=== PATIENT | male | born 1960 | race Asian ===

== ENCOUNTER 2020-07-11 06:10 | Inpatient (IN) | payer OTHER ==
[~2020-07-11] VITALS: Ht 170.2 cm; Wt 68.0 kg
[2020-07-11] MEDS ORDERED: AZITHROMYCIN 500 MG in IV D5W 250 ML IV ONE (06:30)
[2020-07-11] MEDS ORDERED: CEFTRIAXONE 1GM BAG (ER ONLY) 1 GM/50 ML PIGGYBACK IV ONE (06:30)
[2020-07-11] MEDS ORDERED: IV NS 0.9% 500 ML BAG IV ONE (06:30)
[2020-07-11] MEDS ORDERED: CEFTRIAXONE 1GM BAG (ER ONLY) 50 ML IV ONE (06:34)
[2020-07-11] MEDS ORDERED: AZITHROMYCIN 500 MG VIAL ONE (06:34)
--- NOTE | 2020-07-11 06:47 | NUR ---
dwain 102 from home c/o sob and cough x 3 days. field 02 sat room air 56%. pt currently on nonrebreather 15 sating 97%, iv started, blood drawn and sent to lab
--- NOTE | 2020-07-11 06:56 | NUR ---
covid swab collected and sent to lab
[2020-07-11 07:03] LABS: BASOPHILS # (AUTO) 0.1 /CMM (0.0-0.2); BASOPHILS % (AUTO) 0.5 % (0.0-2.0); EOSINOPHILS % (AUTO) 0.6 % (0.0-6.0); HEMATOCRIT 45 % (39-51); HEMOGLOBIN 14.9 g/dL (13.5-17.5); LYMPHOCYTES # (AUTO) 0.5 /CMM (0.8-4.8); LYMPHOCYTES % (AUTO) 5.5 % (20.0-44.0); MEAN CORPUSCULAR HGB CONC 33 g/dl (31.0-36.0); MEAN CORPUSCULAR VOLUME 103 fL (80-96); MONOCYTES # (AUTO) 0.3 /CMM (0.1-1.30); MONOCYTES % (AUTO) 2.7 % (2.0-12.0); NEUTROPHILS # (AUTO) 9.1 /CMM (1.8-8.9); NEUTROPHILS % (AUTO) 90.7 % (43.0-81.0); PLATELET COUNT (AUTO) 139 /CMM (150-450); RED BLOOD CELL COUNT(AUTO) 4.38 MIL/uL (4.5-6.0)
--- NOTE | 2020-07-11 07:20 | NUR ---
ASSESSED PT ON BED AWAKE AND ALERT ON O2 AT 15LPM VIA NB. V/S STABLE, KEPT RESTED AND COMFORTABLE. WILL CONTINUE TO MONITOR.
--- NOTE | 2020-07-11 07:25 | NUR ---
ASSESSED PT ON BED AWAKE AND ALERT, ON NON REBREATHER MASK AT 15LPM SAT AT 91%, V/S STABLE. KEPT RESTED AND COMFORTABLE. WILL CONTINUE TO MONITOR.
[2020-07-11] MEDS ORDERED: POTA10TA11 PO (07:54)
[2020-07-11] MEDS ORDERED: ATOR10TA PO (07:54)
[2020-07-11] MEDS ORDERED: ATEN25TA PO (07:54)
[2020-07-11] MEDS ORDERED: FURO40TA5 PO (07:54)
[2020-07-11] MEDS ORDERED: RIVA10TA PO (07:54)
[2020-07-11] MEDS ORDERED: IPRATROPIUM NEB FS 0.5 MG/2.5 ML AMPUL.NEB NEB ONE (08:00)
[2020-07-11] MEDS ORDERED: ALBUTEROL FS 2.5 MG/0.5 ML VIAL.NEB NEB ONE (08:00)
--- NOTE | 2020-07-11 08:07 | NUR ---
LAB CALLED COVID-19 NEGATIVE. (-)
[2020-07-11 08:08] LABS: ALANINE AMINOTRANSFERASE 51 U/L (12-78); ALBUMIN 2.4 g/dL (3.4-5.0); ALKALINE PHOSPHATASE 76 U/L (46-116); ASPARTATE AMINOTRANSFERASE 54 U/L (15-37); B-TYPE NATRIURETIC PEPTIDE 571 PG/ML (0-125); BILIRUBIN,DIRECT 0.8 mg/dL (0.0-0.2); BILIRUBIN,TOTAL 1.9 mg/dL (0.2-1.0); CALCIUM, SERUM 8.8 mg/dL (8.5-10.1); CARBON DIOXIDE 28 mmol/L (21-32); CHLORIDE 103 mmol/L (98-107); CREATININE 1.5 mg/dL (0.6-1.3); GLUCOSE 134 mg/dL (74-106); POTASSIUM 3.8 mmol/L (3.5-5.1); SODIUM SERUM 143 mmol/L (136-145); UREA NITROGEN, BLOOD 36 mg/dL (7-18)
[2020-07-11] MEDS ORDERED: ONDANSETRON HCL/PF 4 MG/2 ML VIAL IVP PRN (10:30)
[2020-07-11] MEDS ORDERED: TEMAZEPAM 15 MG CAPSULE PO PRN (10:30)
[2020-07-11] MEDS ORDERED: ONDANSETRON 4 MG TAB.RAPDIS SL PRN (10:30)
[2020-07-11] MEDS ORDERED: ACETAMINOPHEN 325 MG TABLET PO PRN (10:30)
[2020-07-11] MEDS ORDERED: ALBUTEROL SULFATE 8 GM HFA.AER.AD IH PRN (10:30)
[2020-07-11] MEDS ORDERED: HYDROCODONE/APAP 5/325MG TABLET PO PRN (10:30)
[2020-07-11] MEDS ORDERED: APIXABAN 5 MG TABLET ONE (10:37)
[2020-07-11] MEDS: APIXABAN 5 MG TABLET PO SCH ×2 (10:39→21:14)
[2020-07-11] MEDS ORDERED: DEXAMETHASONE SOD PHOSPHATE 10 MG/ML VIAL IV ONE (11:00)
[2020-07-11] MEDS ORDERED: FUROSEMIDE 40 MG/4 ML VIAL ONE (11:07)
[2020-07-11] MEDS ORDERED: DEXAMETHASONE SOD PHOSPHATE 10 MG/ML VIAL ONE (11:07)
[2020-07-11] MEDS: FUROSEMIDE 40 MG/4 ML VIAL IV SCH (11:13)
[2020-07-11] MEDS: ATENOLOL 25 MG TABLET PO SCH (11:30)
--- NOTE | 2020-07-11 11:31 | NUR ---
ATENOLOL NOT GIVEN PT BP IS 103/55.
--- NOTE | 2020-07-11 11:55 | NUR ---
RT AT [facility] FOR HIGH FLOW NC
--- NOTE | 2020-07-11 12:01 | NUR ---
RT NOTE PATIENT PLACED ON HIGH FLOW NASAL CANNULA 60LPM 100% WITH 15LPM NONREBREATHER PER MD ORDERS. EMERGENCY EQUIPMENT AT PATIENT BEDSIDE. WILL CONTINUE TO MONITOR PATIENT. Addendum: 07/11/20 at 1204 by PILO GRAY RT Amended: Links added.
[2020-07-11] MEDS ORDERED: LEVO112T5 PO (14:30)
[2020-07-11] MEDS ORDERED: LEVOTHYROXINE SODIUM 100 MCG TABLET ONE (14:57)
[2020-07-11] MEDS ORDERED: POTASSIUM CHLORIDE 10 MEQ TABLET.SA ONE (15:01)
[2020-07-11] MEDS: LEVOTHYROXINE SODIUM 112 MCG TABLET PO SCH (15:04)
[2020-07-11] MEDS: POTASSIUM CHLORIDE 10 MEQ TABLET.SA PO SCH (17:03)
[2020-07-11] MEDS ORDERED: ATORVASTATIN 10 MG TABLET ONE (18:08)
[2020-07-11] MEDS: ATORVASTATIN 10 MG TABLET PO SCH (18:10)
--- NOTE | 2020-07-11 19:05 | NUR ---
PT IN BED SLEEPING. EASILY ARROUSABLE.
--- NOTE | 2020-07-11 19:33 | NUR ---
REPORT GIVEN TO ASTER TRINIDAD FOR WILLIE
--- NOTE | 2020-07-11 19:57 | NUR ---
PT WAS TRANSFERRED TO 111 UNDER ACLS.
--- NOTE | 2020-07-11 19:59 | NUR ---
pt transported to unit on gurney with emt and rn at bedside w/ acls protocol. NAD noted during transport.
[2020-07-11 20:00] VITALS: BP 117/68
--- NOTE | 2020-07-11 20:00 | NUR ---
FLIGHT OPERATIONS SPECIALISTTRAY DRIER OPERATOR NOTE RECEIVED PATIENT IN BEED. A/OX3.ON OXYGEN 60L/MIN VIA HIGH FLOW NASAL CANNULA. RESPIRATIONS ARE EVEN AND SLIGHTLY LABORED DT PATIENT ASSISTED WITH TRANSFER FROM [facility] TO BED. NO RESP DISTRESS NOTED. NO C/O PAIN AT THIS TIME. EXTERNAL TELE MONITOR READS UNCONTROLLED AFIB HR 102. IN NO APPARENT DISTRESS.IV ACCESS IN RIGHT HAND #18 PATENT AND SALINE LOCKED. IV IN EFT HAND #18 IS INFILTRATED, AND REMOVED. INATAL PHYSICAL ASSESSMENT COMPLETED AT THIS TIME. SKIN ASSESSMENT COMPETED, SKIN INTACT. TOOTH CLERK OBTAINED VITALS AND COMPLETED BELONGING LIST. BED IS LOW AND LOCKED, HOB ELEVATED IN HIGH FOWLERS, SIDE RIALS UP X2, CALL LIGHT WITHIN REACH, EXPLAINED USE. WILL CONTINUE TO MONITOR THROUGHOUT SHIFT.
[2020-07-11] MEDS: DOXYCYCLINE HYCLATE (100 MG) 100 MG TABLET PO SCH (21:13)
[2020-07-11] MEDS: CEFEPIME 1 GM in IV D5W 50 ML IV SCH (21:13)
[2020-07-12] VITALS: BP 99/61
[2020-07-12 00:48] LABS: BILIRUBIN,URINE SMALL (NEGATIVE); COLOR,URINE DARK YELLOW (YELLOW); LEUKOCYTE ESTERASE ,URINE NEGATIVE (NEGATIVE); NITRITE, URINE NEGATIVE (NEGATIVE); PROTEIN,URINE NEGATIVE (NEGATIVE); UGLUCOSE NEGATIVE (NEGATIVE); UROBILINOGEN,URINE >=8.0 EU/dL (0.2)
[2020-07-12 04:00] VITALS: BP 102/60
--- NOTE | 2020-07-12 06:11 | NUR ---
wireless telegrapher note informdd dr. andres that patient is on high flw o2 and connected to a continuos pulse ox, and the beeping from the machine is causing him a great deal of anxiety and he is requesting an anxiety medication. telephone ordr xanax .25mg po q12hr prn. order read back note and carried out.
[2020-07-12 06:16] LABS: BASOPHILS % (AUTO) 0.4 % (0.0-2.0); EOSINOPHILS % (AUTO) 1.3 % (0.0-6.0); HEMATOCRIT 40 % (39-51); HEMOGLOBIN 13.3 g/dL (13.5-17.5); LYMPHOCYTES # (AUTO) 0.4 /CMM (0.8-4.8); LYMPHOCYTES % (AUTO) 4.2 % (20.0-44.0); MEAN CORPUSCULAR HGB CONC 33 g/dl (31.0-36.0); MEAN CORPUSCULAR VOLUME 103 fL (80-96); MONOCYTES # (AUTO) 0.3 /CMM (0.1-1.30); MONOCYTES % (AUTO) 2.7 % (2.0-12.0); NEUTROPHILS # (AUTO) 8.8 /CMM (1.8-8.9); NEUTROPHILS % (AUTO) 91.4 % (43.0-81.0); PLATELET COUNT (AUTO) 124 /CMM (150-450); RED BLOOD CELL COUNT(AUTO) 3.88 MIL/uL (4.5-6.0); WHITE BLOOD COUNT (AUTO) 9.6 K/uL (4.3-11.0)
[2020-07-12] MEDS: ALPRAZOLAM 0.25 MG TABLET PO PRN (06:37)
[2020-07-12 06:45] LABS: ALBUMIN 1.9 g/dL (3.4-5.0); BILIRUBIN,TOTAL 1.3 mg/dL (0.2-1.0); CALCIUM, SERUM 7.9 mg/dL (8.5-10.1); CREATININE 1.4 mg/dL (0.6-1.3); POTASSIUM 4.4 mmol/L (3.5-5.1); TOTAL PROTEIN, SERUM 6.9 g/dL (6.4-8.2)
--- NOTE | 2020-07-12 07:30 | NUR ---
RN OPENING NOTE PATIENT IS IN BED WITH HOB AT SEMI FOWLERS POSITION. PATIENT IS AOX3 AND ANXIOUS. PATIENT IS RECEIVING HIGH FLOW AT 60L 100% AND NRB AT 15L. SKIN IS INTACT. RHAND #18 IS PATENT, INTACT, AND HAS NO SIGNS OF INFILTRATION. BED IS LOCKED IN THE LOWEST POSITION, CALL POTTS WITHIN REACH, 3 GUARD RAILS RAISED, AND ALL HOSPITAL SAFETY PRECAUTIONS ARE BEING FOLLOWED. WILL CONTINUE TO MONITOR.
--- NOTE | 2020-07-12 07:42 | NUR ---
RECREATIONAL SPORTS DIRECTOR CLOSING NOTE PATIENT RESTING IN BED. A/OX3. REMAINS ON OXYGEN 60L/MIN VIA HIGH FLOW NASAL CANNULA WELL NONREBREATHER AT 15L/MIN. RESPIRATIONS ARE LABORED D/T PATIENT REMOVING O2 TO DRINK WATER. NO C/O PAIN THROUGHOUT SHIFT. XANAX GIVEN D/T ANXIETY. TELE MONITOR AFIB. IV ACCESS MAINTAINED IN RIGHT HAND #18. BED IS LOW AND LOCKED, HOB ELEVATED IN HIGH FOWLERS, SIDE RIALS UP X2, CALL LIGHT WITHIN REACH. WILL ENDORSE TO NEXT SHIFT.
[2020-07-12 08:00] VITALS: BP 94/62
[2020-07-12] MEDS: PANTOPRAZOLE 40 MG TABLET.DR PO SCH (08:06)
[2020-07-12] MEDS: POTASSIUM CHLORIDE 10 MEQ TABLET.SA PO SCH ×2 (08:06→17:26)
[2020-07-12] MEDS: LEVOTHYROXINE SODIUM 112 MCG TABLET PO SCH (08:06)
[2020-07-12] MEDS: DOXYCYCLINE HYCLATE (100 MG) 100 MG TABLET PO SCH ×2 (08:06→21:16)
[2020-07-12] MEDS: DEXAMETHASONE SOD PHOSPHATE 4 MG/ML VIAL IV SCH (08:07)
[2020-07-12] MEDS: FUROSEMIDE 40 MG/4 ML VIAL IV SCH (08:07)
[2020-07-12] MEDS: CEFEPIME 1 GM in IV D5W 50 ML IV SCH ×2 (08:08→21:16)
[2020-07-12] MEDS: APIXABAN 5 MG TABLET PO SCH ×2 (08:19→17:28)
[2020-07-12] MEDS: ATENOLOL 25 MG TABLET PO SCH (08:46)
[2020-07-12 12:00] VITALS: BP 99/57
--- NOTE | 2020-07-12 15:45 | NUR ---
BUDGET CONSULTANT NOTE PATIENT RIPPED OUT RHAND IV ACCESS. BLEEDING HAS BEEN CONTROLLED. PROVIDER NOTIFIED AND RESTRAINTS HAVE BEEN ORDERED.
[2020-07-12 16:00] VITALS: BP 99/57
[2020-07-12] MEDS: ATORVASTATIN 10 MG TABLET PO SCH (17:26)
--- NOTE | 2020-07-12 19:51 | NUR ---
RN CLOSING NOTE PATIENT IS IN BED WITH HOB AT SEMI FOWLERS POSITION. PATIENT IS AOX2. CURRENTLY ON 60L AT 100% AND NRB AT 15L. SOFT RESTRAINTS APPLIED BILATERALLY. SKIN IS INTACT. RAC#20 IS PATENT, INTACT, AND HAS NO SIGNS OF INFILTRATION. BED IS LOCKED IN THE LOWEST POSITION, CALL POTTS WITHIN REACH, 3 GUARD RAILS RAISED, AND ALL HOSPITAL SAFETY PRECAUTIONS ARE BEING FOLLOWED. ENDORSED TO BIOMETRICS ANALYST RN.
[2020-07-12 20:00] VITALS: BP 126/65
--- NOTE | 2020-07-12 20:00 | NUR ---
RN NOTE RECEIVED PT IN BED AOX1-2. ON HFNC 60L 100%FIO2 AND WITH NRB AT 15L. SATING AT 92%. NO RESP DISTRESS NOTED. ON TELE MONITORING SHOWS CONTROLLED AFIB WITH HR OF 93. PT WITH BILATERAL SOFT WRIST RESTRAINTS, WITH GOOD CIRCULATION. IV ON LAC G20 PATENT AND INTACT. NO SIGNS OF INFECTION. ALL SAFETY MEASURES IMPLEMENTED PER PROTOCOL, CALL LIGHT WITHIN REACH, BED LOCKED IN LOWEST POSITION. SIDE RAILS UP. WILL CONTINUE TO MONITOR.
--- NOTE | 2020-07-12 21:08 | NUR ---
RN NOTE RECEIVED CALL FROM CHEMISTRY. PT BLOOD CULTURE PRELIMINARY IS GRAM + COCCI. MBA INTERN DR ESTEFANI SHULTZ NOTIFIED, NO NEW ORDER.
--- NOTE | 2020-07-12 23:30 | NUR ---
RN NOTE RT REMOVED PTS NON REBREATHER DUE TO SATURATION IS GOOD AT 98-99%. NO RESP DISTRESS NOTED. WILL CONTINUE TO MONITOR.
--- NOTE | 2020-07-12 23:55 | NUR ---
RN NOTE PT CONTINUE ON HFNC 60L 100 %. WITH O2 SAT OF 97 %. NO RESP DISTRESS NOTED. WILL CONTINUE TO MONITOR.
[2020-07-13] VITALS: BP 113/58
--- NOTE | 2020-07-13 03:26 | NUR ---
RN NOTE PT SLEEPING COMFORTABLY. NO DISTRESS NOTED. O2 SAT AT 98%.
[2020-07-13 04:00] VITALS: BP 97/50
--- NOTE | 2020-07-13 06:15 | NUR ---
RN NOTE PT NOTED WITH LOW O2 SAT AT 84-85 WHILE COUGHING. PT ALERT, NO DISTRESS NOTED. DR JARA NOTIFIED, REQUESTED FOR COUGH MED ORDER. AWAITING FOR REPLY.
--- NOTE | 2020-07-13 06:16 | NUR ---
RN NOTE NONREBREATHER 15L WAS PUT BACK. RT AT BEDSIDE. WILL CONTINUE TO MONITOR. KEPT HOB ELEVATED.
--- NOTE | 2020-07-13 06:45 | NUR ---
RN NOTE DR JARA ORDERED ROBITUSSIN DM 5ML Q4HH PRN FOR COUGH. ORDER NOTED AND CARRIED OUT. PTS O2SAT AT 90-92%. NO CHANGES IN LOC. CONTINUE ON HFNC 60L 100 % AND NRB 15L.
[2020-07-13] MEDS: GUAIFENESIN/D-METHORPHAN HB 5 ML UDC PO PRN ×2 (07:06→21:15)
[2020-07-13] MEDS: PANTOPRAZOLE 40 MG TABLET.DR PO SCH (07:06)
--- NOTE | 2020-07-13 07:30 | NUR ---
RN OPENING NOTE PATIENT IS IN BED WITH HOB AT SEMI FOWLERS POSITION. PATIENT IS AOX2 WITH HIGH FLOW 60L AT 100% AND NRB AT 15L. SKIN IS INTACT. LAC #20 IS PATENT, INTACT, AND HAS NO SIGNS OF INFILTRATION. BILATERAL WRIST RESTRAINTS ARE NOT APPLIED. BED IS LOCKED IN THE LOWEST POSITION, CALL POTTS WITHIN REACH, AND ALL HOSPITAL SAFETY PRECAUTIONS ARE BEING FOLLOWED. WILL CONTINUE TO MONITOR THROUGHOUT SHIFT.
[2020-07-13 08:00] VITALS: BP 104/49
[2020-07-13] MEDS: ATENOLOL 25 MG TABLET PO SCH (09:00)
[2020-07-13] MEDS: POTASSIUM CHLORIDE 10 MEQ TABLET.SA PO SCH ×2 (09:20→17:15)
[2020-07-13] MEDS: CEFEPIME 1 GM in IV D5W 50 ML IV SCH ×2 (09:20→20:04)
[2020-07-13] MEDS: DEXAMETHASONE SOD PHOSPHATE 4 MG/ML VIAL IV SCH (09:21)
[2020-07-13] MEDS: DOXYCYCLINE HYCLATE (100 MG) 100 MG TABLET PO SCH ×2 (09:21→20:04)
[2020-07-13] MEDS: LEVOTHYROXINE SODIUM 112 MCG TABLET PO SCH (09:22)
[2020-07-13] MEDS: FUROSEMIDE 40 MG/4 ML VIAL IV SCH (09:22)
[2020-07-13] MEDS: APIXABAN 5 MG TABLET PO SCH ×2 (09:24→17:16)
--- NOTE | 2020-07-13 09:25 | NUR ---
GOVERNMENT GUARD NOTE BP MEDICATION HELD DUE TO LOW BP. WILL CONTINUE TO MONITOR.
[2020-07-13 12:00] VITALS: BP 88/58
[2020-07-13 12:25] LABS: CHOLESTEROL 145 mg/dL (<200); HDL CHOLESTEROL 37 mg/dL (40-60); LDL 93 mg/dL (0-99); TRIGLYCERIDES 124 mg/dL (30-150)
[2020-07-13 13:05] LABS: BILIRUBIN,DIRECT 0.6 mg/dL (0.0-0.2)
--- NOTE | 2020-07-13 13:33 | NUR ---
BARGE PILOT NOTE SPOKE WITH PHARMACY IN REGARDS OF EXPEDITING PCR RESULTS FOR ADMINISTRATION OF CONVALESCENT PLASMA. PHARMACY SAID THE PCR RESULT WILL BE AVAILABLE EARLIEST THIS AFTERNOON OR TOMORROW.
[2020-07-13] MEDS: VANCOMYCIN 1 GM in IV D5W 250ml IV SCH (13:56)
[2020-07-13 16:00] VITALS: BP 89/47
--- NOTE | 2020-07-13 16:30 | NUR ---
SANDWICH ARTIST NOTE DVT STOCKINGS APPLIED. WILL CONTINUE TO MONITOR.
[2020-07-13] MEDS: ATORVASTATIN 10 MG TABLET PO SCH (17:15)
--- NOTE | 2020-07-13 18:44 | NUR ---
RN CLOSING NOTE PATIENT IS IN BED WITH HOB AT SEMI FOWLERS POSITION. PATIENT IS AOX2 WITH HIGH FLOW 60L AT 100% AND NRB AT 15L. SKIN IS INTACT. LAC #20 IS PATENT, INTACT, AND HAS NO SIGNS OF INFILTRATION. BILATERAL DVT STOCKINGS ARE APPLIED. BED IS LOCKED IN THE LOWEST POSITION, CALL POTTS WITHIN REACH, AND ALL HOSPITAL SAFETY PRECAUTIONS ARE BEING FOLLOWED. WILL ENDORSE TO RIBBON TIER RN.
--- NOTE | 2020-07-13 19:05 | NUR ---
WEB OPERATIONS LEAD NOTE PCR SWABBED COLLECTED. WILL SUBMIT TO LAB.
--- NOTE | 2020-07-13 19:10 | NUR ---
RECEIVED PATIENT IN BED WITH HOB AT SEMI FOWLERS POSITION. PATIENT IS AOX2 WITH HIGH FLOW 60L AT 100% AND NRB AT 15L.SPO2 92% SKIN IS INTACT. TELE MONITOR READS AFIB CONTROLLED LAC #20 IS PATENT, INTACT, AND HAS NO SIGNS OF INFILTRATION. BED IS LOCKED IN THE LOWEST POSITION, CALL POTTS WITHIN REACH, AND ALL HOSPITAL SAFETY PRECAUTIONS ARE BEING FOLLOWED. WILL CONTINUE TO MONITOR THROUGHOUT SHIFT.
[2020-07-13 20:00] VITALS: BP 93/54
--- NOTE | 2020-07-13 20:00 | NUR ---
RN NOTE RECEIVED PT IN BED A/O X3 ON HIGH FLOW 60 L O2, FIO2 100% SATING 90% TO 91%.SAFETY MEASURES IN PLACE.
[2020-07-13] MEDS: ALPRAZOLAM 0.25 MG TABLET PO PRN (21:14)
[2020-07-14] VITALS (8 sets, daily range): BP systolic 91–140; BP diastolic 51–94
[2020-07-14] MEDS: VANCOMYCIN 1 GM in IV D5W 250ml IV SCH ×2 (01:28→14:11)
[2020-07-14] MEDS: GUAIFENESIN/D-METHORPHAN HB 5 ML UDC PO PRN ×2 (03:05→10:23)
[2020-07-14 06:03] LABS: BASOPHILS % (AUTO) 0.2 % (0.0-2.0); HEMATOCRIT 40 % (39-51); HEMOGLOBIN 13.1 g/dL (13.5-17.5); LYMPHOCYTES # (AUTO) 0.4 /CMM (0.8-4.8); MEAN CORPUSCULAR HGB CONC 33 g/dl (31.0-36.0); MEAN CORPUSCULAR VOLUME 102 fL (80-96); MONOCYTES # (AUTO) 0.4 /CMM (0.1-1.30); MONOCYTES % (AUTO) 2.6 % (2.0-12.0); NEUTROPHILS # (AUTO) 13.1 /CMM (1.8-8.9); NEUTROPHILS % (AUTO) 93.2 % (43.0-81.0); PLATELET COUNT (AUTO) 123 /CMM (150-450); RED BLOOD CELL COUNT(AUTO) 3.91 MIL/uL (4.5-6.0)
--- NOTE | 2020-07-14 06:46 | NUR ---
PT ON BED ASLEEP EASY TO WAKE UP NO SIGN OF RESPIRATORY DISTRESS, STILL ON HIGH LOW 60L FIO2 100% SPO2 92% NO COMPLAINED OF PAIN, TELE MONITOR READS AFIB 80S NO SIGNIFICANT CHANGES ON CONDITION NOTED ALL NEED ATTENDED BED ON LOWEST POSITION AND LOCKED SIDE RAILS UP X 2 CALL LIGHT WITHIN REACH WILL ENDORSED TO AM SHIFT NURSE
[2020-07-14 06:58] LABS: CALCIUM, SERUM 8.1 mg/dL (8.5-10.1); CREATININE 1.2 mg/dL (0.6-1.3); MAGNESIUM 2.2 mg/dL (1.8-2.4); PHOSPHORUS 2.4 mg/dL (2.5-4.9); POTASSIUM 4.2 mmol/L (3.5-5.1)
--- NOTE | 2020-07-14 07:10 | NUR ---
RN OPENING NOTE PATIENT RECEIVED IN BED RESTING IN SEMI FOWLERS POSITION. PATIENT IS AOX2 ON O2 THERAPY VIA HFNC AT 60 LPM, 100% PLUS NRB AT 15 LPM. SKIN IS INTACT. LAC #20 IS PATENT, INTACT, AND HAS NO SIGNS OF INFILTRATION. BILATERAL DVT STOCKINGS ARE APPLIED. SAFETY PRECAUTIONS IMPLEMENTED, BED IS LOCKED IN LOWEST POSITION, SIDE RAILS UP X2, BED ALARM ON, AND CALL LIGHT WITHIN REACH. WILL CONTINUE TO MONITOR CLIENT AND PROVIDE CARE THROUGHOUT SHIFT.
[2020-07-14] MEDS: PANTOPRAZOLE 40 MG TABLET.DR PO SCH (08:50)
[2020-07-14] MEDS: LEVOTHYROXINE SODIUM 112 MCG TABLET PO SCH (08:53)
[2020-07-14] MEDS: DOXYCYCLINE HYCLATE (100 MG) 100 MG TABLET PO SCH ×2 (08:53→20:39)
[2020-07-14] MEDS: POTASSIUM CHLORIDE 10 MEQ TABLET.SA PO SCH ×2 (08:53→16:10)
[2020-07-14] MEDS: DEXAMETHASONE SOD PHOSPHATE 4 MG/ML VIAL IV SCH (08:53)
[2020-07-14] MEDS: ATENOLOL 25 MG TABLET PO SCH (08:54)
[2020-07-14] MEDS: CEFEPIME 1 GM in IV D5W 50 ML IV SCH ×2 (08:55→20:40)
[2020-07-14] MEDS: FUROSEMIDE 40 MG/4 ML VIAL IV SCH (08:55)
[2020-07-14] MEDS: APIXABAN 5 MG TABLET PO SCH ×2 (09:20→16:11)
[2020-07-14 15:03] LABS: ABG BASE EXCESS 2.2 mmol/L; ABG PCO2 33.5 mmHg (35.0-45.0); ABG PH 7.491 (7.350-7.450); AaDO2 628.5 mmHg; COHb 0.7 % (0.5-1.5); MetHb 0.1 % (0.0-1.5); O2Hb 86.3 % (94.0-97.0); SITE, ABG Right Radial; VENT MODE, BG HFNC 50L 100% NRB
[2020-07-14] MEDS: ALPRAZOLAM 0.25 MG TABLET PO PRN (15:28)
[2020-07-14] MEDS ORDERED: NEUTRA PHOS 1 POWD.PACKET PO ONE (16:00)
[2020-07-14] MEDS: ATORVASTATIN 10 MG TABLET PO SCH (18:02)
--- NOTE | 2020-07-14 18:53 | NUR ---
RN CLOSING NOTE PATIENT IN BED RESTING IN SEMI FOWLERS POSITION. PATIENT IS AOX2 ON O2 THERAPY VIA HFNC AT 60 LPM, 100% PLUS NRB AT 15 LPM. SKIN IS INTACT. LAC #20 IS PATENT, INTACT, AND HAS NO SIGNS OF INFILTRATION. SAFETY PRECAUTIONS IMPLEMENTED, BED IS LOCKED IN LOWEST POSITION, SIDE RAILS UP X2, BED ALARM ON, AND CALL LIGHT WITHIN REACH. WILL ENDORSE CONTINUATION OF CARE TO UPCOMING SHIFT.
--- NOTE | 2020-07-14 21:35 | NUR ---
2134 DR JARA WAS NOTIFIED OF ABG RESULT WITH NO ORDER MADE. SHE SAID TO CONTINUE TO MONITOR PATIENT FOR NOW.
--- NOTE | 2020-07-14 22:05 | NUR ---
8007 DR. JARA WAS NOTIFIED THAT PATIENT IS TACYPNEIC RR IN THE HIGH 20S, O2 SATURATION 90-91% ON HI FLOW OXYGEN WITH NRM. SHE ORDERED TO TRANSFER PATIENT TO ICU WITH SAME ORDERS. ORDER NOTED AND CARRIED OUT.
--- NOTE | 2020-07-14 22:40 | NUR ---
2240 TRANSFERRED TO ICU ON ACLS PROTOCOL, ACCOMPANIED BY RT AND NURSES. AWAKE AND VERBALLY RESPONSIVE. NO DISTRESS NOTED BUT TACHYPNEIC AND EASILY DESATURATES. PLACED IN ROOM 260.
--- NOTE | 2020-07-14 22:45 | NUR ---
RECEIVED PATIENT FROM ARUN. BEDSIDE REPORT GIVEN. PATIENT TRANSFERED DUE TO RESPIRATORY DISTRESS. PATIENT IS ON HIGH FLOW 6L WITH FI02 AT 100% AND NRB MASK AT 15L SATURATING AT 87%. PATIENT SHOWS TACHYPNIC WITH RR AT 35. HE IS A/OX4 UNDERSTANDS KAZAKH AND FOLLOWS COMMANDS. RADIAL PULSES PALPATED REGUALR AND STRONG. PUPILS REACTIVE TO LIGHT. SPEECH CLEAR. EXTREMITIES STRONG. 2300: OF NOW PATIENT IS COMFORTABLE WITH NO SIGN OF RESPIRATORY DISTRESS SATURATING AT 93%.
[2020-07-15] VITALS (31 sets, daily range): BP systolic 86–118; BP diastolic 48–72
[2020-07-15] MEDS: VANCOMYCIN 1 GM in IV D5W 250ml IV SCH ×2 (03:14→14:21)
[2020-07-15 05:07] LABS: BASOPHILS % (AUTO) 0.3 % (0.0-2.0); EOSINOPHILS % (AUTO) 1.3 % (0.0-6.0); HEMATOCRIT 43 % (39-51); HEMOGLOBIN 14.1 g/dL (13.5-17.5); LYMPHOCYTES # (AUTO) 0.3 /CMM (0.8-4.8); LYMPHOCYTES % (AUTO) 2.4 % (20.0-44.0); MEAN CORPUSCULAR HGB CONC 33 g/dl (31.0-36.0); MEAN CORPUSCULAR VOLUME 102 fL (80-96); MONOCYTES # (AUTO) 0.3 /CMM (0.1-1.30); MONOCYTES % (AUTO) 2.3 % (2.0-12.0); NEUTROPHILS # (AUTO) 13.1 /CMM (1.8-8.9); NEUTROPHILS % (AUTO) 93.7 % (43.0-81.0); PLATELET COUNT (AUTO) 148 /CMM (150-450); RED BLOOD CELL COUNT(AUTO) 4.17 MIL/uL (4.5-6.0)
[2020-07-15 05:22] LABS: CALCIUM, SERUM 8.2 mg/dL (8.5-10.1); CREATININE 1.4 mg/dL (0.6-1.3); POTASSIUM 4.2 mmol/L (3.5-5.1)
[2020-07-15] MEDS: DEXAMETHASONE SOD PHOSPHATE 4 MG/ML VIAL IV SCH (08:13)
[2020-07-15] MEDS: LEVOTHYROXINE SODIUM 112 MCG TABLET PO SCH (08:14)
[2020-07-15] MEDS: DOXYCYCLINE HYCLATE (100 MG) 100 MG TABLET PO SCH (08:14)
[2020-07-15] MEDS: POTASSIUM CHLORIDE 10 MEQ TABLET.SA PO SCH ×2 (08:14→17:24)
[2020-07-15] MEDS: FUROSEMIDE 40 MG/4 ML VIAL IV SCH (08:15)
[2020-07-15] MEDS: PANTOPRAZOLE 40 MG TABLET.DR PO SCH (08:15)
[2020-07-15] MEDS: ATENOLOL 25 MG TABLET PO SCH ×2 (08:16→09:00)
[2020-07-15] MEDS: APIXABAN 5 MG TABLET PO SCH ×2 (08:18→17:24)
[2020-07-15] MEDS: CEFEPIME 1 GM in IV D5W 50 ML IV SCH ×2 (08:24→22:30)
--- NOTE | 2020-07-15 09:00 | NUR ---
PT SCHEDULED 0900 MED OF ATENOLOL NON-ADMIN. PT SBP IN 90'S, LASIX ALSO GIVEN
[2020-07-15] MEDS ORDERED: REMDESIVIR (CHARGED) 200 MG, *LOADING DOSE 1 EA in IV NS 0.9% 210 ML IV ONE (16:00)
[2020-07-15] MEDS: ENSURE ENLIVE 237 ML LIQUID (VANILLA) PO SCH (17:24)
[2020-07-15] MEDS: ATORVASTATIN 10 MG TABLET PO SCH (17:24)
--- NOTE | 2020-07-15 19:00 | NUR ---
PT REMAINS IN BED NO ACUTE CHANGES ON HF AND NON-REBREATHER MASK, O2 SATS 89-95% THIS SHIFT NO RESPIRATORY DISTRESS. PT TESTED POSITIVE PCR COVID. REMDESEVIR INITIATED, WILL OBTAIN CONSENT FOR CONVALESCENT PLASMA.
--- NOTE | 2020-07-15 21:30 | NUR ---
PATIENT WAS NOTICED TO BE DE SATURATING AT 89%. PATIENT WAS REPOSITIONED TO ATTEMPT TO PRONE BUT PATIENT DE SATURATED MORE. 2230: PATIENT CURRENTLY AT 84% WITH NO SIGN OF RESPIRATORY DISTRESS. WILL CONTINUE TO MONITOR.
[2020-07-16] VITALS (73 sets, daily range): BP systolic 58–147; BP diastolic 35–109
[2020-07-16] MEDS: VANCOMYCIN 1 GM in IV D5W 250ml IV SCH ×2 (01:10→14:13)
--- NOTE | 2020-07-16 01:29 | NUR ---
CONVALESCENT PLASMA COMPLETED AT 0111
[2020-07-16 05:14] LABS: BASOPHILS % (AUTO) 0.2 % (0.0-2.0); EOSINOPHILS % (AUTO) 0.7 % (0.0-6.0); HEMATOCRIT 41 % (39-51); HEMOGLOBIN 13.5 g/dL (13.5-17.5); LYMPHOCYTES # (AUTO) 0.4 /CMM (0.8-4.8); LYMPHOCYTES % (AUTO) 3.2 % (20.0-44.0); MEAN CORPUSCULAR HGB CONC 33 g/dl (31.0-36.0); MEAN CORPUSCULAR VOLUME 104 fL (80-96); MONOCYTES # (AUTO) 0.3 /CMM (0.1-1.30); MONOCYTES % (AUTO) 2.6 % (2.0-12.0); NEUTROPHILS # (AUTO) 11.3 /CMM (1.8-8.9); NEUTROPHILS % (AUTO) 93.3 % (43.0-81.0); PLATELET COUNT (AUTO) 159 /CMM (150-450); RED BLOOD CELL COUNT(AUTO) 3.93 MIL/uL (4.5-6.0); WHITE BLOOD COUNT (AUTO) 12.1 K/uL (4.3-11.0)
[2020-07-16 05:33] LABS: BILIRUBIN,DIRECT 0.9 mg/dL (0.0-0.2); BILIRUBIN,TOTAL 1.8 mg/dL (0.2-1.0); CALCIUM, SERUM 8.5 mg/dL (8.5-10.1); CREATININE 1.2 mg/dL (0.6-1.3); POTASSIUM 4.1 mmol/L (3.5-5.1)
[2020-07-16 06:19] LABS: C-REACTIVE PROTEIN 59.3 mg/dL (0.0-0.9)
[2020-07-16] MEDS: PANTOPRAZOLE 40 MG TABLET.DR PO SCH (07:40)
[2020-07-16] MEDS: CEFEPIME 1 GM in IV D5W 50 ML IV SCH ×2 (08:00→21:46)
[2020-07-16] MEDS: ENSURE ENLIVE 237 ML LIQUID (VANILLA) PO SCH ×2 (08:00→17:00)
[2020-07-16] MEDS: ATENOLOL 25 MG TABLET PO SCH (08:01)
[2020-07-16] MEDS: LEVOTHYROXINE SODIUM 112 MCG TABLET PO SCH (08:01)
[2020-07-16] MEDS: DEXAMETHASONE SOD PHOSPHATE 4 MG/ML VIAL IV SCH (08:01)
[2020-07-16] MEDS: POTASSIUM CHLORIDE 10 MEQ TABLET.SA PO SCH ×2 (08:01→18:33)
[2020-07-16] MEDS: APIXABAN 5 MG TABLET PO SCH ×2 (08:03→18:37)
[2020-07-16] MEDS: ALPRAZOLAM 0.25 MG TABLET PO PRN (09:33)
--- NOTE | 2020-07-16 10:00 | NUR ---
PT STATES HE HAS CHEST PAIN, THEN DENIED CHEST PAIN AND STATED HE HAD HEADACH, THEN STATES THAT HE DOES NOT KNOW. PT APPEARS RESTLESS. PT OFFERED AND GIVEN XANAX FOR AGITATION.
--- NOTE | 2020-07-16 10:32 | NUR ---
PT ENSURE DRINK NON-ADMIN, NOT PROVIDED WITH BREAKFAST TRAY. NUTRITION NOTIFIED, BUT STILL DID NOT RECEIVE DRINK. WILL F/U FOR 1700 ENSURE DRINK
--- NOTE | 2020-07-16 14:35 | NUR ---
PT OBSERVED TAKING OFF HIS HF AND NON-REBREATHER MASK, PT STATED HE WANTED TO GO TO THE BATHROOM. PT PREVIOUSLY TOLD TO REMAIN BEDREST AND USE BEDPAN. PT O2 SATS IN 75% WITH MORE LABORED BREATHING. PT ASSESSED BY RT, MD OSMAN AWARE. PER MD OSMAN, IF O2 SAT DOES NOT RISE ABOVE 85% IN 10 MINUTES, ORDER A STAT ABG
[2020-07-16 14:56] LABS: ABG OXYGEN SATURATION 68.2 % (92.0-98.5); ABG PCO2 33.8 mmHg (35.0-45.0); ABG PH 7.471 (7.350-7.450); ABG PO2 34.5 mmHg (75.0-100.0); AaDO2 644.7 mmHg; COHb 0.7 % (0.5-1.5); MetHb 0.2 % (0.0-1.5); O2Hb 67.6 % (94.0-97.0); SITE, ABG Left Radial; VENT MODE, BG 60l hfnc 100% +nrb 15l
[2020-07-16] MEDS ORDERED: PROPOFOL 100 ML IV PRN (15:30)
--- NOTE | 2020-07-16 15:40 | NUR ---
RT INTUBATED PT WITH DR PERALTA ETT 7.5, 23 CM AT LIP SECURED AND PATENT WITH ORDERED VENT SETTING AC 24 400 +10 100% C02 COLOR CHANGED EQUAL BILATERAL CHEST RISE CHEST XRAY PENDING WILL CONT TO MONITOR Addendum: 07/16/20 at 1542 by NANO PAZ RT Amended: Links added.
--- NOTE | 2020-07-16 15:45 | NUR ---
ABG RESULTS RELAYED TO MD PELEG, PT INTUBATED AT BEDSIDE, PER MD PELEG, OK TO START PROPOFOL AT 50, AND MAX AT 100, IF PT STILL BREATHING OVER VENT, MAY INITIATE FENTANYL. NGT INSERTED ORDERED.
[2020-07-16] MEDS ORDERED: REMDESIVIR (CHARGED) 100 MG in IV NS 0.9% 100 ML IV SCH (16:00)
--- NOTE | 2020-07-16 16:00 | NUR ---
PICC LINE ORDERED FOR PT, UNABLE TO GET CONSENT FROM PATIENT OR PT FAMILY PER FACE SHEET ON CHART. EMERGENCY CONSENT PATIENT ON SEDATION AND NEEDS PRESSORS
[2020-07-16] MEDS ORDERED: ETOMIDATE 2 MG/ML VIAL IV ONE (16:07)
[2020-07-16] MEDS ORDERED: SUCCINYLCHOLINE CHLORIDE 20 MG/ML VIAL IV ONE (16:07)
[2020-07-16] MEDS ORDERED: FENTANYL CITRAT IV 2,500 MCG in IV NS 0.9% 250 ML IV PRN (16:30)
[2020-07-16] MEDS ORDERED: NOREPINEPHRINE 8 MG in IV NS 0.9% 242 ML IV PRN (16:30)
[2020-07-16] MEDS ORDERED: FENTANYL CITRATE IV 1,250 MCG in IV NS 0.9% 225 ML IV PRN (16:30)
--- NOTE | 2020-07-16 16:30 | NUR ---
PT ON MONITOR SHOWING ASYSTOLE AND NO PULSE, CODE BLUE INITIATED, 1 EPI GIVEN WITH CPR BEFORE ROSC. ANTHONY INITIATED FOR PATIENT.
[2020-07-16] MEDS: PHENYLEPHRINE 50 MG in IV NS 0.9% 245 ML IV PRN ×2 (17:00→21:44)
[2020-07-16 17:08] LABS: ABG BASE EXCESS -3.8 mmol/L; ABG OXYGEN SATURATION 88.7 % (92.0-98.5); ABG PCO2 48.1 mmHg (35.0-45.0); ABG PH 7.296 (7.350-7.450); ABG PO2 64.7 mmHg (75.0-100.0); AaDO2 600.2 mmHg; COHb 0.7 % (0.5-1.5); MetHb 0.2 % (0.0-1.5); O2Hb 87.9 % (94.0-97.0); SITE, ABG Right Radial; VENT MODE, BG ac24 400 +10 100%
[2020-07-16] MEDS: PROPOFOL 100 ML IV PRN ×3 (17:10→22:04)
[2020-07-16 17:12] LABS: BASOPHILS # (AUTO) 0.1 /CMM (0.0-0.2); BASOPHILS % (AUTO) 0.6 % (0.0-2.0); EOSINOPHILS % (AUTO) 0.3 % (0.0-6.0); HEMATOCRIT 37 % (39-51); HEMOGLOBIN 12.7 g/dL (13.5-17.5); LYMPHOCYTES # (AUTO) 0.3 /CMM (0.8-4.8); LYMPHOCYTES % (AUTO) 2.4 % (20.0-44.0); MEAN CORPUSCULAR HGB CONC 35 g/dl (31.0-36.0); MEAN CORPUSCULAR VOLUME 101 fL (80-96); MONOCYTES % (AUTO) 0.2 % (2.0-12.0); NEUTROPHILS # (AUTO) 13.5 /CMM (1.8-8.9); NEUTROPHILS % (AUTO) 96.5 % (43.0-81.0); PLATELET COUNT (AUTO) 162 /CMM (150-450); RED BLOOD CELL COUNT(AUTO) 3.65 MIL/uL (4.5-6.0)
[2020-07-16] MEDS ORDERED: IV NS 0.9% 1,000 ML IV ONE (18:30)
--- NOTE | 2020-07-16 18:30 | NUR ---
MD WILLIAMSON NOTIFIED OF INTUBATION AND CODE EVENT, ORDERS TO BOLUS 1L NS IF CVP IS UNDER 8. MD WILLIAMSON ALSO ORDERS CONSULT FOR CARDIOLOGY, WILL ENDORSE TO ONCOMING RN. ORDERS RECEIVED TO BEGIN NS @ 80 ML/HR.
[2020-07-16 18:36] LABS: CALCIUM, SERUM 7.4 mg/dL (8.5-10.1); CREATININE 1.6 mg/dL (0.6-1.3); POTASSIUM 5.2 mmol/L (3.5-5.1)
--- NOTE | 2020-07-16 19:00 | NUR ---
Received patient ,S/P intubation, S/P code (x1 epinephirne given) with ROSC. Intubated,unresponsive(sedated), on Propofol drip @ maximum dose(will titrate down as patient is hypotensive) .Breathing with deep inspiratory effort,labored with PIP=39,tachypneic RR in the 30's,( will start Fentanyl drip). No cough.no gag,no movement noted ,no respones to deep stimuli.On Neosynephrine drip for BP support,(hold off on levophed drip due to HR in the 120's ) on AFIB with rate abive 100's (100-120's).
--- NOTE | 2020-07-16 21:00 | NUR ---
NERI CATHETER F 14 (CAUDE) INSERTED ASEPTICALLY ,WITHOUT ANY DIFFICULTY ,WITH CLEAR YELLOW URINE.
--- NOTE | 2020-07-16 21:00 | NUR ---
Patient's son called.Made him aware how critical is his father,updated him on patient's condition( intubated,coded,unresponsive,hyporensive,Covid +) son's # Zane Braden.He's the only family member that patient have as per son.
[2020-07-17] VITALS (82 sets, daily range): BP systolic 64–143; BP diastolic 47–96
--- NOTE | 2020-07-17 | NUR ---
Remains very unstable, bp in the 80's systolic,saturating 88-89 % .Propofol drip titrated down.
[2020-07-17] MEDS ORDERED: VASOPRESSIN INJ 20 UNIT/ML VIAL ONE ×2 (00:51→02:54)
[2020-07-17] MEDS: VASOPRESSIN INJ 40 UNIT in IV NS 0.9% 38 ML IV PRN ×3 (00:55→22:23)
--- NOTE | 2020-07-17 01:00 | NUR ---
OBTAINED ORDER FOR ANOTHER PRESSORS FROM ,BP STILL LABLIE GOES DOWN INTO LOW 80'S SYSTOLIC. VASOPRESSIN STARTED.
[2020-07-17] MEDS: PROPOFOL 100 ML IV PRN ×2 (01:34→17:39)
[2020-07-17] MEDS: PHENYLEPHRINE 50 MG in IV NS 0.9% 245 ML IV PRN ×6 (01:35→20:43)
[2020-07-17] MEDS: VANCOMYCIN 1 GM in IV D5W 250ml IV SCH (02:32)
--- NOTE | 2020-07-17 03:00 | NUR ---
REMAINS VERY UNSTABLE,UNABLE TO TURN PATIENT .BP STILL LOW,TURNED OFF PROPOFOL DRIP FOR NOW,MAINTAINED FENTANYL DRIP AT LOW DOSE.
[2020-07-17 04:38] LABS: BASOPHILS % (AUTO) 0.1 % (0.0-2.0); HEMATOCRIT 45 % (39-51); HEMOGLOBIN 14.3 g/dL (13.5-17.5); LYMPHOCYTES # (AUTO) 0.4 /CMM (0.8-4.8); LYMPHOCYTES % (AUTO) 2.2 % (20.0-44.0); MEAN CORPUSCULAR HGB CONC 32 g/dl (31.0-36.0); MEAN CORPUSCULAR VOLUME 107 fL (80-96); MONOCYTES # (AUTO) 0.8 /CMM (0.1-1.30); MONOCYTES % (AUTO) 4.5 % (2.0-12.0); NEUTROPHILS # (AUTO) 16.9 /CMM (1.8-8.9); NEUTROPHILS % (AUTO) 93.2 % (43.0-81.0); PLATELET COUNT (AUTO) 132 /CMM (150-450); RED BLOOD CELL COUNT(AUTO) 4.16 MIL/uL (4.5-6.0); WHITE BLOOD COUNT (AUTO) 18.1 K/uL (4.3-11.0)
--- NOTE | 2020-07-17 05:00 | NUR ---
AM CARE DONE, ATTEMPTED TO TURN/ MOVE PATIENT TO CHANGE SHEETS . PATIENT BECAME VERY TACYPNEIC ,DEEP LABORED BREATHING ,WITH pip= 40'S AND DESATURATING IN THE 70'S.SINCE BP STABLE NOW ,RESUMED PROPOFOL DRIP AT LOW DOSE FOR VENTILATOR SYNCHRONY .
[2020-07-17 05:06] LABS: ALBUMIN 1.8 g/dL (3.4-5.0); BILIRUBIN,TOTAL 2.5 mg/dL (0.2-1.0); CALCIUM, SERUM 7.7 mg/dL (8.5-10.1); CREATININE 3.4 mg/dL (0.6-1.3); TOTAL PROTEIN, SERUM 7.8 g/dL (6.4-8.2)
[2020-07-17 05:10] LABS: POTASSIUM 8.1 mmol/L (3.5-5.1)
--- NOTE | 2020-07-17 05:30 | NUR ---
CONTACTED DR. CONCEPCION, RESPONDED RIGHT AWAY , RELAYED POTASSIUM OF 8.1 ,CREAT=3.4 AND WITH LOW URINE OUTPUT. ORDERED TO GIVE KAYEXALATE TO TREAT THE HIGH POTASSIUM AND THAT PATIENT MAY NEED HEMODIALYSIS .
[2020-07-17] MEDS ORDERED: SODIUM POLYSTYRENE SULFONATE 15 G/60 ML BOTTLE NG STA (06:01)
[2020-07-17] MEDS: ENSURE ENLIVE 237 ML LIQUID (VANILLA) PO SCH (08:00)
[2020-07-17] MEDS: LEVOTHYROXINE SODIUM 112 MCG TABLET PO SCH (08:17)
[2020-07-17] MEDS: POTASSIUM CHLORIDE 10 MEQ TABLET.SA PO SCH ×2 (08:17→09:00)
[2020-07-17] MEDS: PANTOPRAZOLE 40 MG TABLET.DR PO SCH (08:17)
[2020-07-17] MEDS: CEFEPIME 1 GM in IV D5W 50 ML IV SCH (08:17)
[2020-07-17] MEDS: ATENOLOL 25 MG TABLET PO SCH (08:18)
[2020-07-17] MEDS: DEXAMETHASONE SOD PHOSPHATE 4 MG/ML VIAL IV SCH (08:23)
[2020-07-17] MEDS: APIXABAN 5 MG TABLET PO SCH ×2 (08:26→17:15)
[2020-07-17] MEDS: HYDROCORTISONE SOD SUCCINATE 100 MG/2 ML VIAL IV SCH ×3 (09:47→21:24)
[2020-07-17 09:50] LABS: ABG BASE EXCESS -22.1 mmol/L; ABG OXYGEN SATURATION 82.5 % (92.0-98.5); ABG PCO2 73.2 mmHg (35.0-45.0); ABG PH 6.856 (7.350-7.450); ABG PO2 65.5 mmHg (75.0-100.0); AaDO2 574.3 mmHg; COHb 0.4 % (0.5-1.5); MetHb 0.4 % (0.0-1.5); O2Hb 81.8 % (94.0-97.0); SITE, ABG Right Radial
[2020-07-17] MEDS: FENTANYL CITRAT IV 2,500 MCG in IV NS 0.9% 200 ML IV PRN ×2 (10:06→17:14)
[2020-07-17] MEDS ORDERED: INSULIN REGULAR, HUMAN 100 UNIT/ML 10 ML VIAL IV ONE (10:30)
[2020-07-17] MEDS ORDERED: SODIUM BICARBONATE SYR 50 MEQ/50 ML DISP.SYRIN IV ONE (10:30)
[2020-07-17] MEDS ORDERED: DEXTROSE 50%-WATER 50 ML DISP.SYRIN IVP ONE (10:30)
[2020-07-17] MEDS ORDERED: Calcium Gluconate 1GM/10ML 4.65 MEQ in IV D5W 50 ML IV ONE (11:00)
[2020-07-17] MEDS: Sodium Bicarbonate 100 MEQ in IV D5W 1,000 ML IV PRN (12:32)
[2020-07-17] MEDS: FLUDROCORTISONE 0.1 MG TABLET NG SCH ×2 (12:44→17:14)
[2020-07-17] MEDS ORDERED: MEROPENEM 500 MG in IV NS 0.9% 50 ML IV SCH (13:00)
[2020-07-17] MEDS ORDERED: CLINDAMYCIN 900 MG in IV D5W 50 ML IV SCH (13:00)
[2020-07-17 13:01] LABS: ALBUMIN 1.5 g/dL (3.4-5.0); BILIRUBIN,TOTAL 2.3 mg/dL (0.2-1.0); CALCIUM, SERUM 6.8 mg/dL (8.5-10.1); CREATININE 4.3 mg/dL (0.6-1.3); MAGNESIUM 2.9 mg/dL (1.8-2.4); TOTAL PROTEIN, SERUM 6.7 g/dL (6.4-8.2)
[2020-07-17] MEDS: MEROPENEM 500 MG in IV NS 0.9% 50 ML IV SCH (13:02)
[2020-07-17 13:24] LABS: PHOSPHORUS 15.8 mg/dL (2.5-4.9); POTASSIUM 7.1 mmol/L (3.5-5.1)
[2020-07-17] MEDS: ALBUMIN 25% 50 GM in PREMIX 1 EA IV PRN (15:14)
[2020-07-18] VITALS (104 sets, daily range): BP systolic 67–155; BP diastolic 41–94
[2020-07-18] MEDS: PHENYLEPHRINE 50 MG in IV NS 0.9% 245 ML IV PRN ×3 (00:08→05:42)
[2020-07-18] MEDS: FLUDROCORTISONE 0.1 MG TABLET NG SCH ×5 (00:39→23:46)
--- NOTE | 2020-07-18 01:45 | NUR ---
ICU/HARM REDUCTION WORKER FOUND PT WITH POOL OD BLOOD TO THE PICC LINE SIGHT AND FRANKIE HD CATH SIGHT. NOTIFED CHARGE NURSE, WHO THEN WAS ABLE TO PLACE A PRESSURE DRESSING TO THE SIGHT. GOT AN ORDER FOR SURGACEL TO HELP STOP THE BLEEDING. WILL CONTINUE TO MONITOR THIS PT.
[2020-07-18] MEDS: MEROPENEM 500 MG in IV NS 0.9% 50 ML IV SCH ×2 (01:52→14:36)
[2020-07-18] MEDS: Sodium Bicarbonate 100 MEQ in IV D5W 1,000 ML IV PRN (04:16)
[2020-07-18] MEDS ORDERED: CELLULOSE,OXIDIZED 1 EACH EACH MC ONE (04:30)
[2020-07-18] MEDS ORDERED: GELATIN SPONGE,ABSORBABLE 1 SPONGE SPONGE TP ONE (04:30)
[2020-07-18 04:47] LABS: BASOPHILS % (AUTO) 0.2 % (0.0-2.0); HEMATOCRIT 35 % (39-51); HEMOGLOBIN 10.9 g/dL (13.5-17.5); LYMPHOCYTES # (AUTO) 0.3 /CMM (0.8-4.8); LYMPHOCYTES % (AUTO) 1.6 % (20.0-44.0); MEAN CORPUSCULAR HGB CONC 32 g/dl (31.0-36.0); MEAN CORPUSCULAR VOLUME 107 fL (80-96); MONOCYTES # (AUTO) 0.8 /CMM (0.1-1.30); MONOCYTES % (AUTO) 4.2 % (2.0-12.0); NEUTROPHILS # (AUTO) 18.3 /CMM (1.8-8.9); RED BLOOD CELL COUNT(AUTO) 3.25 MIL/uL (4.5-6.0); WHITE BLOOD COUNT (AUTO) 19.5 K/uL (4.3-11.0)
--- NOTE | 2020-07-18 05:00 | NUR ---
ICU/CUSTOMER SERVICES MANAGER FOUND SOME BLEEDING TO THE SAME SIGHT. A MEKORYUK WAS DRAWN AROUND THE SIGHT. WILL CONTINUE TO MONITOR THE BLEEDING.
[2020-07-18] MEDS: HYDROCORTISONE SOD SUCCINATE 100 MG/2 ML VIAL IV SCH ×3 (05:04→21:21)
[2020-07-18] MEDS: PROPOFOL 100 ML IV PRN ×2 (05:05→16:49)
[2020-07-18 05:15] LABS: ALBUMIN 2.2 g/dL (3.4-5.0); BILIRUBIN,TOTAL 2.9 mg/dL (0.2-1.0); TOTAL PROTEIN, SERUM 6.1 g/dL (6.4-8.2)
[2020-07-18 05:25] LABS: ALBUMIN 2.2 g/dL (3.4-5.0); BILIRUBIN,TOTAL 2.9 mg/dL (0.2-1.0); CALCIUM, SERUM 6.2 mg/dL (8.5-10.1); CREATININE 5.1 mg/dL (0.6-1.3); MAGNESIUM 2.2 mg/dL (1.8-2.4); TOTAL PROTEIN, SERUM 6.2 g/dL (6.4-8.2)
[2020-07-18 06:04] LABS: PHOSPHORUS 11.6 mg/dL (2.5-4.9); POTASSIUM 6.8 mmol/L (3.5-5.1)
--- NOTE | 2020-07-18 06:34 | NUR ---
ICU/GREEK PROFESSOR BLEEDING IS SMALL AMOUNT COMPARED TO LAST TIME. WILL CONTINUE TO MONITOR THIS PT.
--- NOTE | 2020-07-18 06:43 | NUR ---
ICU/BICYCLE RENTAL CLERK POTASSIUM 6.8 & PHOS 11.6, RESIN PAINTER MD CALLED FOR THIS SAID NO NEW ORDERS, PT NEEDS HD TODAY. WILL PASS ON TO DAY NURSE FOR THIS.
[2020-07-18 06:44] LABS: PLATELET COUNT (AUTO) 107 /CMM (150-450)
[2020-07-18 06:47] LABS: BAND % (MANUAL) 5 % (0.0-5.0); LYMPHOCYTES % (MANUAL) 3 % (16-48); METAMYELOCYTES % 3 % (0-0); MONOCYTES % (MANUAL) 3 % (0-11.0); NEUTROPHILS % (MANUAL) 86 (42-76)
[2020-07-18 08:27] LABS: ABG BASE EXCESS -10.8 mmol/L; ABG OXYGEN SATURATION 92.9 % (92.0-98.5); ABG PCO2 52.1 mmHg (35.0-45.0); ABG PH 7.154 (7.350-7.450); ABG PO2 85.4 mmHg (75.0-100.0); AaDO2 575.5 mmHg; COHb 0.4 % (0.5-1.5); MetHb 0.4 % (0.0-1.5); O2Hb 92.2 % (94.0-97.0); PEEP,BG 12 cm H2O; SITE, ABG Left Radial; VT, ABG 450 mL
[2020-07-18] MEDS: ATENOLOL 25 MG TABLET PO SCH (09:00)
[2020-07-18] MEDS: APIXABAN 5 MG TABLET PO SCH ×2 (09:00→13:25)
[2020-07-18] MEDS: PHENYLEPHRINE 100 MG in IV NS 0.9% 240 ML IV PRN ×2 (09:38→16:58)
[2020-07-18] MEDS: Sodium Bicarbonate 150 MEQ in IV D5W 1,000 ML IV SCH (09:39)
[2020-07-18] MEDS: DEXAMETHASONE SOD PHOSPHATE 4 MG/ML VIAL IV SCH (10:26)
[2020-07-18] MEDS: ALBUMIN 25% 50 GM in PREMIX 1 EA IV PRN (10:41)
[2020-07-18] MEDS: FENTANYL CITRAT IV 2,500 MCG in IV NS 0.9% 200 ML IV PRN (11:18)
[2020-07-18] MEDS ORDERED: VANCOMYCIN 500 MG in IV D5W 100 ML IV PRN (12:00)
[2020-07-18] MEDS ORDERED: ALBUMIN 25% 25 GM in PREMIX 1 EA IV PRN (12:00)
[2020-07-18] MEDS: VASOPRESSIN INJ 40 UNIT in IV NS 0.9% 38 ML IV PRN (12:12)
[2020-07-18] MEDS: PANTOPRAZOLE 40 MG TABLET.DR PO SCH (14:28)
[2020-07-18] MEDS: LEVOTHYROXINE SODIUM 112 MCG TABLET PO SCH (14:28)
--- NOTE | 2020-07-18 20:00 | NUR ---
Received patient intubated to mechanical vent on full vent support SPO2 93%.No acute respiratory distress noted.Sedated on Diprivan gtt at 10 mcg,Fentanyl gtt at 2 mcg.With Neosynephrine gtt at 3 mcg for BP support and will titrate accordingly to keep SBP>90 and Bicarb gtt all iv's infusing via CARLOTA PICC LINE.Site intact.NGT clamped.Placement verified.NPO status.FC to gravity no urine output noted.Turned and repositioned.Easily desat to mid 80's with activity.Continue monitoring.
[2020-07-19] VITALS (97 sets, daily range): BP systolic 77–165; BP diastolic 46–103
[2020-07-19] MEDS: Sodium Bicarbonate 150 MEQ in IV D5W 1,000 ML IV SCH ×3 (00:14→23:41)
[2020-07-19] MEDS: PHENYLEPHRINE 100 MG in IV NS 0.9% 240 ML IV PRN ×2 (01:01→14:00)
[2020-07-19] MEDS: MEROPENEM 500 MG in IV NS 0.9% 50 ML IV SCH ×2 (01:50→13:52)
[2020-07-19] MEDS ORDERED: IV NS 0.9% 500 ML IV ONE (02:00)
[2020-07-19] MEDS: IV NS 0.9% 250 ML IV PRN (02:33)
[2020-07-19 04:29] LABS: BASOPHILS # (AUTO) 0.1 /CMM (0.0-0.2); BASOPHILS % (AUTO) 0.6 % (0.0-2.0); HEMATOCRIT 29 % (39-51); HEMOGLOBIN 9.6 g/dL (13.5-17.5); LYMPHOCYTES # (AUTO) 0.2 /CMM (0.8-4.8); LYMPHOCYTES % (AUTO) 1.6 % (20.0-44.0); MEAN CORPUSCULAR HGB CONC 33 g/dl (31.0-36.0); MEAN CORPUSCULAR VOLUME 103 fL (80-96); MONOCYTES # (AUTO) 0.5 /CMM (0.1-1.30); NEUTROPHILS # (AUTO) 14.2 /CMM (1.8-8.9); NEUTROPHILS % (AUTO) 94.8 % (43.0-81.0); RED BLOOD CELL COUNT(AUTO) 2.82 MIL/uL (4.5-6.0)
[2020-07-19] MEDS: PROPOFOL 100 ML IV PRN ×2 (05:00→18:52)
[2020-07-19] MEDS: FLUDROCORTISONE 0.1 MG TABLET NG SCH ×4 (05:01→23:52)
[2020-07-19] MEDS: HYDROCORTISONE SOD SUCCINATE 100 MG/2 ML VIAL IV SCH ×3 (05:01→21:18)
[2020-07-19 05:02] LABS: ALBUMIN 2.6 g/dL (3.4-5.0); BILIRUBIN,DIRECT 3.1 mg/dL (0.0-0.2); BILIRUBIN,TOTAL 4.5 mg/dL (0.2-1.0); CREATININE 5.1 mg/dL (0.6-1.3); POTASSIUM 4.9 mmol/L (3.5-5.1)
[2020-07-19] MEDS: FENTANYL CITRAT IV 2,500 MCG in IV NS 0.9% 200 ML IV PRN ×2 (05:17→23:45)
[2020-07-19 05:21] LABS: CALCIUM, SERUM 5.6 mg/dL (8.5-10.1)
[2020-07-19 06:22] LABS: PLATELET COUNT (AUTO) 46 /CMM (150-450)
--- NOTE | 2020-07-19 06:40 | NUR ---
Patient resting.VS remains stable.SR.No acute distress noted.No active bleeding noted.AM care done.Turned and repositioned.All needs met.No significant change noted during the shift. Addendum: 07/19/20 at 0658 by ALTAGRACIA DOOLEY RN Please disregard above documentation.Error entry.
--- NOTE | 2020-07-19 07:00 | NUR ---
Patient remains intubated with same vent setting tolerating well but desaturate to low 60's when turned and during am bed bath.Afib controlled.Scanty urine output.No BM noted.All IV'S infusing well.Fentanyl gtt at 2 mcg,Diprivan gtt at 10 mcg,Neosynephrine at 2 mcg and Bicarb gtt.No acute distress noted.All needs met.AM Labs resulted INR 4.3,Platelet 46.Called to no orders made. He said to wait the attending this morning for orders.No active bleeding noted. Report given to day shift for WILLIE.
[2020-07-19] MEDS: ATENOLOL 25 MG TABLET PO SCH (09:00)
[2020-07-19] MEDS: APIXABAN 5 MG TABLET PO SCH ×2 (09:00→13:39)
[2020-07-19 09:06] LABS: BAND % (MANUAL) 7 % (0.0-5.0); LYMPHOCYTES % (MANUAL) 2 % (16-48); MONOCYTES % (MANUAL) 1 % (0-11.0); NEUTROPHILS % (MANUAL) 90 (42-76)
[2020-07-19 09:17] LABS: ABG BASE EXCESS 1.2 mmol/L; ABG OXYGEN SATURATION 93.1 % (92.0-98.5); ABG PCO2 49.5 mmHg (35.0-45.0); ABG PH 7.357 (7.350-7.450); ABG PO2 79.8 mmHg (75.0-100.0); AaDO2 583.7 mmHg; COHb 0.3 % (0.5-1.5); O2Hb 92.8 % (94.0-97.0); SITE, ABG Right Radial; VENT MODE, BG ac 30480 100% +14
[2020-07-19] MEDS: PANTOPRAZOLE 40 MG TABLET.DR PO SCH (09:20)
[2020-07-19] MEDS: DEXAMETHASONE SOD PHOSPHATE 4 MG/ML VIAL IV SCH (09:21)
[2020-07-19] MEDS: LEVOTHYROXINE SODIUM 112 MCG TABLET PO SCH (09:24)
[2020-07-19] MEDS ORDERED: Calcium Gluconate 1GM/10ML 4.65 MEQ in IV D5W 50 ML IV ONE (14:00)
--- NOTE | 2020-07-19 20:00 | NUR ---
RECEIVED PATIENT AT CHANGE OF SHIFT. PER PREVIOUS RN, PATIENT HAD AN EPISODE OF EMESIS AND TUBE FEEDING WAS TURNED OFF. PATIENT REMAINS SEDATED, INTUBATED AND IN NO ACUTE DISTRESS AT THIS TIME.
[2020-07-20] VITALS (98 sets, daily range): BP systolic 80–131; BP diastolic 48–82
--- NOTE | 2020-07-20 00:06 | NUR ---
FLORINEF NOT GIVEN AT MIDNIGHT D/T PATIENT VOMITED
[2020-07-20] MEDS: IV NS 0.9% 250 ML IV PRN (01:23)
[2020-07-20] MEDS: MEROPENEM 500 MG in IV NS 0.9% 50 ML IV SCH ×2 (01:34→13:30)
[2020-07-20] MEDS: PHENYLEPHRINE 100 MG in IV NS 0.9% 240 ML IV PRN ×2 (01:43→22:53)
[2020-07-20] MEDS ORDERED: IV NS 0.9% 500 ML IV PRN (03:00)
[2020-07-20] MEDS: HYDROCORTISONE SOD SUCCINATE 100 MG/2 ML VIAL IV SCH ×3 (04:56→21:12)
[2020-07-20] MEDS: PROPOFOL 100 ML IV PRN ×3 (04:59→17:39)
[2020-07-20 05:11] LABS: BASOPHILS % (AUTO) 0.1 % (0.0-2.0); HEMATOCRIT 26 % (39-51); HEMOGLOBIN 8.7 g/dL (13.5-17.5); LYMPHOCYTES # (AUTO) 0.7 /CMM (0.8-4.8); LYMPHOCYTES % (AUTO) 4.4 % (20.0-44.0); MEAN CORPUSCULAR HGB CONC 34 g/dl (31.0-36.0); MEAN CORPUSCULAR VOLUME 102 fL (80-96); MONOCYTES # (AUTO) 0.3 /CMM (0.1-1.30); MONOCYTES % (AUTO) 2.3 % (2.0-12.0); NEUTROPHILS # (AUTO) 14.1 /CMM (1.8-8.9); NEUTROPHILS % (AUTO) 93.2 % (43.0-81.0); RED BLOOD CELL COUNT(AUTO) 2.53 MIL/uL (4.5-6.0); WHITE BLOOD COUNT (AUTO) 15.1 K/uL (4.3-11.0)
[2020-07-20 05:27] LABS: PLATELET COUNT (AUTO) 48 /CMM (150-450)
[2020-07-20] MEDS: FLUDROCORTISONE 0.1 MG TABLET NG SCH ×4 (05:58→17:39)
--- NOTE | 2020-07-20 05:58 | NUR ---
Florinef not administered due to patient vomiting
--- NOTE | 2020-07-20 06:00 | NUR ---
AM CARE DONE. NOTED DESATURATION TO HIGH 60s DURING BED BATH. POST BATH O2 SATS RETURNED TO BASELINE 88-90%. PATIENT HAS BEEN STABLE SINCE AND HAS OTHERWISE TOLERATED Q2H REPOSITIONING. DURING THIS SHIFT, PATIENT NOTED TO HAVE EPISODES OF DARK BROWN EMESIS X3. PROPOFOL TITRATED UP DURING SHIFT FOR VENTILATOR SYNCHRONY.
[2020-07-20 06:52] LABS: ALBUMIN 2.5 g/dL (3.4-5.0); BILIRUBIN,TOTAL 6.8 mg/dL (0.2-1.0); CALCIUM, SERUM 6.5 mg/dL (8.5-10.1); CREATININE 5.8 mg/dL (0.6-1.3); MAGNESIUM 2.1 mg/dL (1.8-2.4); PHOSPHORUS 7.4 mg/dL (2.5-4.9); POTASSIUM 4.5 mmol/L (3.5-5.1); TOTAL PROTEIN, SERUM 5.9 g/dL (6.4-8.2)
--- NOTE | 2020-07-20 07:10 | NUR ---
RN INITIAL NOTES RECEIVED PT INTUBATED, ON VENT. PT SEDATED. ON DIPRIVAN AND FENTANYL DRIP. ANTHONY AT 1MCG/KG/MIN INFUSING. IVF INFUSING. NGT TUBE CLAMPED. CARLOTA PICC IN PLACE. NERI IN PLACE. BLE ELEVATED. WILL CLOSELY MONITOR
[2020-07-20 07:51] LABS: ABG BASE EXCESS 3.9 mmol/L; ABG OXYGEN SATURATION 84.7 % (92.0-98.5); ABG PCO2 46.1 mmHg (35.0-45.0); ABG PH 7.416 (7.350-7.450); ABG PO2 56.9 mmHg (75.0-100.0); COHb 0.6 % (0.5-1.5); MetHb 0.3 % (0.0-1.5); O2Hb 83.9 % (94.0-97.0); PEEP,BG 14 cm H2O; SITE, ABG Left Brachial; VT, ABG 480 mL
[2020-07-20] MEDS: PANTOPRAZOLE 40 MG TABLET.DR PO SCH (08:25)
[2020-07-20] MEDS: DEXAMETHASONE SOD PHOSPHATE 4 MG/ML VIAL IV SCH (08:25)
[2020-07-20] MEDS: LEVOTHYROXINE SODIUM 112 MCG TABLET PO SCH (08:25)
[2020-07-20] MEDS: ATENOLOL 25 MG TABLET PO SCH (09:00)
[2020-07-20 09:14] LABS: BAND % (MANUAL) 2 % (0.0-5.0); LYMPHOCYTES % (MANUAL) 2 % (16-48); MONOCYTES % (MANUAL) 4 % (0-11.0); NEUTROPHILS % (MANUAL) 92 (42-76)
[2020-07-20] MEDS: Sodium Bicarbonate 150 MEQ in IV D5W 1,000 ML IV SCH (16:35)
[2020-07-20] MEDS: FENTANYL CITRAT IV 2,500 MCG in IV NS 0.9% 200 ML IV PRN (16:35)
--- NOTE | 2020-07-20 18:58 | NUR ---
RN CLOSING NOTES NO SIGNIFICANT CHANGE NOTED. REMAINS INTUBATED, SEDATED. KEPT COMFORTABL.E TX PROVIDED ORDERED. KEPT CLEAN AND DRY. WILL ENDORSE FOR CONTINUITY OF CARE.
--- NOTE | 2020-07-20 19:30 | NUR ---
ICU/SERVICE CAR DRIVER RECEIVED REPORT FROM DAY NURSE. SEE FLOWSHEET FOR ASSESSMENT. WILL CONTINUE TO MONITOR THIS PT.
--- NOTE | 2020-07-20 20:15 | NUR ---
ICU/HOSPITAL ATTENDANT PT WAS VOMITING DARK LIQUID, WHEN SUCTIONED THE MOUTH THERE WAS BRIGHT RED BLOOD FROM ETT TUBE. WILL CONTINUE TO MONITOR THIS PT.
[2020-07-20] MEDS ORDERED: diphenhydrAMINE HCL 50 MG/ML VIAL IV ONE (20:30)
[2020-07-20] MEDS ORDERED: PHYTONADIONE INJ 10 MG/1 ML AMPUL SQ ONE (20:30)
[2020-07-20] MEDS ORDERED: Folic acid 1 MG in IV D5W 50 ML IV SCH (20:30)
--- NOTE | 2020-07-20 21:00 | NUR ---
ICU/NAVAL AIRCREWMAN HELICOPTER DR MUKHERJEE WROTE MANY ORDERS FOR THIS PT. LAB HERE TO DRAW AM LABS AND TONIGHT. THERE ARE PARAMETERS FOR THESE NEW ORDERS. ALSO THERE WAS MEDICATION ORDERS WELL, WHICH WERE SEEN AND CARRIED OUT. CHARGE NURSE AWARE OF THESE NEW ORDERS.
--- NOTE | 2020-07-20 21:30 | NUR ---
ICU/LONGITUDINAL FLOAT OPERATOR CHARGE NURSE CALLED FAMILY TO NOTIFY THE SON ABOUT THE BLEEDING TO THE MOUTH AND THROUGHOUT THE BODY. CHARGE NURSE WAS ABLE TO HELP THE SON CHANGE CODE STATUS ON PT, TO A DNR. FAMILY SAID THEY WANTED TO COME SEE THE PT, NURSING OFFICE NOTIFED.
[2020-07-20] MEDS ORDERED: Folic acid 1 MG/0.2 ML VIAL ONE (21:41)
--- NOTE | 2020-07-20 23:00 | NUR ---
ICU/HOUSING MANAGEMENT REPRESENTATIVE NOTIFED CHARGE NURSE THAT FIBRINOGEN IS 134, DR MUKHERJEE NOTES THAT IF LESS THAN 150 THEN TRANSFUSE 10 UNITS OF CRYOPRECIPITATE. CHARGE NURSE ORDERED THIS. ALSO 2 UNITS FFP WERE CALLED TO BLOOD BANK ASKED IF READY FOR CIVIL DIVISION DEPUTY SHERIFF. WILL TRANSFUSE WHEN READY.
--- NOTE | 2020-07-20 23:30 | NUR ---
ICU/STAFF DEVELOPER PT'S BROTHER CAME TO SEE PT. PT IS NOW A DNR OF TODAY.
[2020-07-21] VITALS (42 sets, daily range): BP systolic 83–119; BP diastolic 53–75
--- NOTE | 2020-07-21 00:05 | NUR ---
ICU/JAVA TECHNICAL MANAGER THE FIRST FFP WAS GIVEN. WILL MONITOR THIS PT.
[2020-07-21] MEDS: FLUDROCORTISONE 0.1 MG TABLET NG SCH ×2 (00:08→05:06)
[2020-07-21] MEDS: IV NS 0.9% 250 ML IV PRN (00:17)
[2020-07-21] MEDS: PROPOFOL 100 ML IV PRN (01:10)
[2020-07-21] MEDS: MEROPENEM 500 MG in IV NS 0.9% 50 ML IV SCH (02:04)
--- NOTE | 2020-07-21 04:26 | NUR ---
04:00 HRS WAS ADVISED BY Giovana MARISCAL FROM ICU PT IS UNSTABLE TO RETURN LATER IN AM FOR CX XRAY... END OF REPORT.
--- NOTE | 2020-07-21 05:00 | NUR ---
ICU/TYPESETTING MACHINE OPERATOR/TENDER PT WAS GIVEN 2 UNITS OF FFP, THEN PT WAS GIVEN 10 UNITS OF CRYOPRECIPITANT FOR FIBRINOGEN OF 134. PT TO HAVE MORNING LABS.
[2020-07-21] MEDS: HYDROCORTISONE SOD SUCCINATE 100 MG/2 ML VIAL IV SCH (05:06)
--- NOTE | 2020-07-21 06:13 | NUR ---
ICU/TAXI DANCER PT'S SON IS TO COME IN TO SEE THE FATHER, HE WOULD LIKE TO MAKE THE FATHER COMFORT MEASURES. CHARGE NURSE ED SPOKE TO THE SON.
--- NOTE | 2020-07-21 07:20 | NUR ---
Spoke with pt's son in waiting room of unit along with AM RN regarding POC for patient. Terminal wean vs. comfort measures discussed thoroughly with son. Informed pt's son that Dr. Orozco is en route to unit to discuss further. Pt is currently a DNR.
--- NOTE | 2020-07-21 07:56 | NUR ---
icu/brand lead pt's son was given [place] [facility] [place] [employer] $400.00, cell phone, ca id. they did not want clothing. day nurse lisa aware of this.
--- NOTE | 2020-07-21 08:00 | NUR ---
Dr. Orozco on unit discussing POC for patient. Pt's son has decided to terminally wean pt from ventilator. Will follow protocol to carry out orders.
[2020-07-21] MEDS: LEVOTHYROXINE SODIUM 112 MCG TABLET PO SCH (08:03)
[2020-07-21] MEDS: PANTOPRAZOLE 40 MG TABLET.DR PO SCH (08:03)
[2020-07-21] MEDS: DEXAMETHASONE SOD PHOSPHATE 4 MG/ML VIAL IV SCH (08:03)
[2020-07-21] MEDS: Sodium Bicarbonate 150 MEQ in IV D5W 1,000 ML IV SCH (08:04)
[2020-07-21 08:27] LABS: BASOPHILS # (AUTO) 0.1 /CMM (0.0-0.2); BASOPHILS % (AUTO) 0.4 % (0.0-2.0); EOSINOPHILS % (AUTO) 0.1 % (0.0-6.0); HEMATOCRIT 28 % (39-51); HEMOGLOBIN 9.3 g/dL (13.5-17.5); LYMPHOCYTES # (AUTO) 0.5 /CMM (0.8-4.8); LYMPHOCYTES % (AUTO) 2.5 % (20.0-44.0); MEAN CORPUSCULAR HGB CONC 33 g/dl (31.0-36.0); MEAN CORPUSCULAR VOLUME 102 fL (80-96); MONOCYTES # (AUTO) 0.7 /CMM (0.1-1.30); MONOCYTES % (AUTO) 3.6 % (2.0-12.0); NEUTROPHILS # (AUTO) 17.9 /CMM (1.8-8.9); NEUTROPHILS % (AUTO) 93.4 % (43.0-81.0); RED BLOOD CELL COUNT(AUTO) 2.76 MIL/uL (4.5-6.0); WHITE BLOOD COUNT (AUTO) 19.2 K/uL (4.3-11.0)
[2020-07-21 08:29] LABS: ABG BASE EXCESS 2.7 mmol/L; ABG OXYGEN SATURATION 70.9 % (92.0-98.5); ABG PCO2 60.5 mmHg (35.0-45.0); ABG PH 7.312 (7.350-7.450); ABG PO2 44.2 mmHg (75.0-100.0); AaDO2 608.3 mmHg; MetHb 0.2 % (0.0-1.5); PEEP,BG 14 cm H2O; SITE, ABG Left Brachial; VT, ABG 480 mL
[2020-07-21] MEDS: ATENOLOL 25 MG TABLET PO SCH (08:30)
[2020-07-21 08:55] LABS: ALBUMIN 2.8 g/dL (3.4-5.0); CALCIUM, SERUM 6.2 mg/dL (8.5-10.1); MAGNESIUM 2.3 mg/dL (1.8-2.4); POTASSIUM 4.9 mmol/L (3.5-5.1); TOTAL PROTEIN, SERUM 6.7 g/dL (6.4-8.2)
[2020-07-21 09:00] LABS: THYROID STIMULATING HORMONE 0.116 uIU/mL (0.358-3.74)
[2020-07-21] MEDS ORDERED: MORPHINE SULFATE INJ 2 MG/ML DISP.SYRIN IV PRN (09:00)
[2020-07-21] MEDS ORDERED: LORAZEPAM INJ 2 MG/ML VIAL IV PRN (09:00)
[2020-07-21] MEDS ORDERED: DC PROPOFOL WHEN EXTUBATED XX PRN (09:00)
[2020-07-21 09:03] LABS: CREATININE 7.9 mg/dL (0.6-1.3); PHOSPHORUS 10.8 mg/dL (2.5-4.9)
[2020-07-21 09:18] LABS: PLATELET COUNT (AUTO) 42 /CMM (150-450)
[2020-07-21 09:20] LABS: D-DIMER > 35.20 mg/L(FEU (0.17-0.50)
--- NOTE | 2020-07-21 10:00 | NUR ---
Morphine and Ativan given as ordered and documented for comfort during terminal wean process. Education provided to son on unit.
--- NOTE | 2020-07-21 10:44 | NUR ---
RT at bedside extubating pt per son's wishes for terminal wean and comfort measures only.
--- NOTE | 2020-07-21 10:50 | NUR ---
Pt extubated and O2 via NC applied. Mouth care provided.
--- NOTE | 2020-07-21 11:45 | NUR ---
RN NOTE PT ON COMFORT CARE, TERMINALLY EXTUBATED. PT BECAME BRADYCARDIC, PROCEEDING TO ASYSTOLE. NO PULSES, NO SPONTANEOUS RESPIRATIONS. PRONOUNCED AT 1145. FAMILY AT BEDSIDE. DR WILLIAMSON NOTIFIED BY PHONE.
--- NOTE | 2020-07-21 11:45 | NUR ---
Pt . Expiration reported to [facility]). Pt r/o d/t COVID diagnosis. Family on unit and aware of expiration. Pt belongings given to son by prior RN.
[2020-07-21 11:56] LABS: BAND % (MANUAL) 4 % (0.0-5.0); LYMPHOCYTES % (MANUAL) 3 % (16-48); METAMYELOCYTES % 1 % (0-0); MONOCYTES % (MANUAL) 4 % (0-11.0); NEUTROPHILS % (MANUAL) 88 (42-76)
[2020-07-22 14:07] LABS: *SPE A/G RATIO 0.8 (0.7-1.7); *SPE ALBUMIN 2.8 g/dL (2.9-4.4); *SPE ALPHA-1-GLOBULIN 0.3 g/dL (0.0-0.4); *SPE ALPHA-2-GLOBULIN 0.5 g/dL (0.4-1.0); *SPE BETA GLOBULIN 0.8 g/dL (0.7-1.3); *SPE GLOBULIN, TOTAL 3.4 g/dL (2.2-3.9); *SPE M-SPIKE 0.1 g/dL (Not Observed); *SPEGAMMA GLOBULIN 1.7 g/dL (0.4-1.8)
== END 2020-07-21 11:42 | disposition expired | DRG 207 ==
LOC: ER 06:10 → TRANSITION 09:55 → TELE1 19:44 → ICU 07-14 22:47
PROVIDERS: ADMIT Nurse Practitioner Acute Care; ATTEND Internal Medicine
PROC: XW033E5 Introduction of Remdesivir Anti-infective into Peripheral Vein, Percutaneous Approach, New Technology Group 5 (ICD-10-PCS; principal; 2020-07-15)
PROC: XW13325 Transfusion of Convalescent Plasma (Nonautologous) into Peripheral Vein, Percutaneous Approach, New Technology Group 5 (ICD-10-PCS; 2020-07-15)
PROC: 5A1955Z Respiratory Ventilation, Greater than 96 Consecutive Hours (ICD-10-PCS; 2020-07-16)
PROC: 0BH18EZ Insertion of Endotracheal Airway into Trachea, Via Natural or Artificial Opening Endoscopic (ICD-10-PCS; 2020-07-16)
PROC: 02HV33Z Insertion of Infusion Device into Superior Vena Cava, Percutaneous Approach (ICD-10-PCS; 2020-07-16)
PROC: B548ZZA Ultrasonography of Superior Vena Cava, Guidance (ICD-10-PCS; 2020-07-16)
PROC: 5A12012 Performance of Cardiac Output, Single, Manual (ICD-10-PCS; 2020-07-16)
PROC: 06HY33Z Insertion of Infusion Device into Lower Vein, Percutaneous Approach (ICD-10-PCS; 2020-07-17)
PROC: 5A1D70Z Performance of Urinary Filtration, Intermittent, Less than 6 Hours Per Day (ICD-10-PCS; 2020-07-17)
PROC: 30233K1 Transfusion of Nonautologous Frozen Plasma into Peripheral Vein, Percutaneous Approach (ICD-10-PCS; 2020-07-20)
PROC: 30233M1 Transfusion of Nonautologous Plasma Cryoprecipitate into Peripheral Vein, Percutaneous Approach (ICD-10-PCS; 2020-07-21)
DX: U07.1 COVID-19 (principal); A41.89 Other specified sepsis; N17.0 Acute kidney failure with tubular necrosis; J96.01 Acute respiratory failure with hypoxia; J12.82 Pneumonia due to coronavirus disease 2019; I21.A1 Myocardial infarction type 2; I50.33 Acute on chronic diastolic (congestive) heart failure; R65.21 Severe sepsis with septic shock; K72.00 Acute and subacute hepatic failure without coma; J15.9 Unspecified bacterial pneumonia; I48.20 Chronic atrial fibrillation, unspecified; E87.2 Acidosis; E44.0 Moderate protein-calorie malnutrition; E27.40 Unspecified adrenocortical insufficiency; D68.9 Coagulation defect, unspecified; Z51.5 Encounter for palliative care; E86.0 Dehydration; D53.9 Nutritional anemia, unspecified; D69.6 Thrombocytopenia, unspecified; E78.5 Hyperlipidemia, unspecified; E83.51 Hypocalcemia; Z79.4 Long term (current) use of insulin; Z79.01 Long term (current) use of anticoagulants; M89.9 Disorder of bone, unspecified; R74.01 Elevation of levels of liver transaminase levels; N13.9 Obstructive and reflux uropathy, unspecified; I11.0 Hypertensive heart disease with heart failure; E88.09 Other disorders of plasma-protein metabolism, not elsewhere classified; Z68.23 Body mass index [BMI] 23.0-23.9, adult; E11.9 Type 2 diabetes mellitus without complications; Z66 Do not resuscitate; E87.5 Hyperkalemia; I46.9 Cardiac arrest, cause unspecified
CPT/HCPCS: 31720; 36415; 36600; 71045-TC; 80048-TC; 80053-TC; 80061-TC; 80076-TC; 80202-TC; 82248-TC; 82533; 82728-TC; 82784; 82803-TC; 82962-TC; 83540-TC; 83605-TC; 83615-TC; 83735-TC; 83880; 84100-TC; 84155; 84165; 84443-TC; 84478-TC; 84484-TC; 85025-TC; 85378-TC; 85385-TC; 85396; 85610-TC; 85730-TC; 86140-TC; 86334; 86480; 86803; 86850-TC; 87040-TC; 87070-TC; 87081-TC; 87086-TC; 87806; 87899; 90935-TC; 92950-TC; 94002-TC; 94003-TC; 94760-TC; 94762-TC; 94799-TC; 99082-TC; A4216; A4217; A6253; A6403; C1750; C9803; G0378; J0330; J0456; J0610; J0692; J0696; J1100; J1200; J1720; J1815; J1940; J2060; J2185; J2270; J2370; J3010; J3370; J3430; J3490; J7030; J7040; J7050; J7060; J7070; P9012; P9017-BL; P9047; U0003